=== PATIENT | female | born 1990 | race Caucasian/White ===

== ENCOUNTER 2021-07-09 22:44 | Emergency (ER) | payer OTHER ==
[~2021-07-09] VITALS: Ht 160 cm; Wt 81.7 kg
[2021-07-09] MEDS ORDERED: LEXAPRO 10 MG T10 M2 PO (23:11)
[2021-07-10] MEDS ORDERED: HYDROCODON-ACE1 EAC8 PO ×2 (01:32→02:30)
[2021-07-10] MEDS ORDERED: CRUTCHES MISCELL ×2 (01:34→02:36)
[2021-07-10 01:54] VITALS: BP 120/64
== END 2021-07-10 01:55 | disposition home or self-care (01) ==
LOC: M.ERS 22:44
DX: S82.852A Displaced trimalleolar fracture of left lower leg, initial encounter for closed fracture (principal); Z79.899 Other long term (current) drug therapy; W01.0XXA Fall on same level from slipping, tripping and stumbling without subsequent striking against object, initial encounter; Y93.89 Activity, other specified; Y92.89 Other specified places as the place of occurrence of the external cause; Y99.8 Other external cause status